=== PATIENT | male | born 1990 | race Caucasian/White ===

== ENCOUNTER 2017-09-12 13:14 | Inpatient (IN) | payer SELFPAY ==
[~2017-09-12] VITALS: Ht 177.8 cm; Wt 92.4 kg
[~2017-09-12 13:14] MED LIST: DEXAMETHASONE SOD PHOS 4 MG/ML VIAL IV ONE; LACTATED RINGER'S 1000 ML INJ 1,000 ML IV ONE; LIDOCAINE HCL 1% PF 5 ML SYRINGE OTHER ONE; ONDANSETRON HCL 4 MG/2 ML VIAL IV ONE; PROPOFOL 200 MG/20 ML AMP IV ONE; ROCURONIUM INJ 50 MG/5 ML SYRINGE IV PUSH ONE; SUCCINYLCHOLINE CHLORIDE 100 MG/5 ML SYRINGE IV PUSH ONE
[2017-09-12 13:16] VITALS: BP 136/88; PULSE 120; RESP 22; TEMP 97.9; O2SAT 95
[2017-09-12] MEDS ORDERED: LEVO5TAB8 PO (14:15)
[2017-09-12 14:28] LABS: AUTOMATED NEUTROPHIL # 13.1 TH/MM3 (1.8-7.7); BASOPHIL % 0.2 % (0.0-2.0); EOSINOPHIL # 0.1 TH/MM3 (0-0.4); EOSINOPHIL % 0.9 % (0.0-4.0); HEMATOCRIT 47.1 % (39.0-51.0); HEMOGLOBIN 15.8 GM/DL (13.0-17.0); LYMPH % 7.2 % (9.0-44.0); LYMPHOCYTE # 1.1 TH/MM3 (1.0-4.8); MEAN CELL VOLUME 86.5 FL (80.0-100.0); MEAN CORPUSCULAR HGB CONC 33.5 % (32.0-36.0); MEAN PLATELET VOLUME 6.8 FL (7.0-11.0); MONO % 3.5 % (0.0-8.0); MONOCYTE # 0.5 TH/MM3 (0-0.9); NEUT % 88.2 % (16.0-70.0); PLATELET COUNT 351 TH/MM3 (150-450); RED BLOOD COUNT 5.44 MIL/MM3 (4.50-5.90); RED CELL DISTRIBUTION WIDTH 13.1 % (11.6-17.2); WHITE BLOOD COUNT 14.8 TH/MM3 (4.0-11.0)
[2017-09-12 14:44] LABS: ALBUMIN 4.7 GM/DL (3.4-5.0); ALT (GPT) 55 U/L (12-78); AST (GOT) 17 U/L (15-37); BICARBONATE 30.4 MEQ/L (21.0-32.0); BLOOD UREA NITROGEN 11 MG/DL (7-18); CALCIUM 9.6 MG/DL (8.5-10.1); CHLORIDE 104 MEQ/L (98-107); CREATININE 1.09 MG/DL (0.60-1.30); GLOMERULAR FILTRATION RATE 82 ML/MIN (>89); GLUCOSE,RANDOM 124 MG/DL (74-106); LIPASE 74 U/L (73-393); SODIUM (NA) 140 MEQ/L (136-145)
[2017-09-12] MEDS ORDERED: SODIUM CHLORIDE 0.9% FLUSH 10 ML FLUSH IV FLUSH PRN ×3 (14:45→19:00)
[2017-09-12 14:46] LABS: ALKALINE PHOSPHATASE 83 U/L (45-117); TOTAL PROTEIN 8.5 GM/DL (6.4-8.2)
--- NOTE | 2017-09-12 14:55 | PD ---
HPI Chief Complaint: Abdominal Pain Time Seen by Provider: 14:22 Travel History International Travel<30 days: No Contact w/Intl Traveler<30days: No Traveled to known affect area: No History of Present Illness HPI 27-year-old male complains of abdominal pain. Started about 8 hours prior. It is constantly becoming worse. Location is periumbilical. Associated symptoms include vomiting. Oral intake has been increased in association with the holiday season however nothing markedly abnormal according to patient. Bowel movements have been normal. Pain is worse with palpation. Severity moderate. PFSH Past Medical History Medical History: Denies Significant Hx Past Surgical History Surgical History: No Previous Surgery Social History Alcohol Use: Yes (occasional) Tobacco Use: Yes (occasional cigarettes) Substance Use: No Allergies-Medications (Allergen,Severity, Reaction): Coded Allergies: No Known Allergies (Unverified , 09/12/17) Reported Meds & Prescriptions Reported Meds & Active Scripts Active Reported Xyzal (Levocetirizine Dihydrochloride) 5 Mg Tablet 1 Tab PO DAILY Review of Systems Except as stated in HPI: all other systems reviewed are Neg General / Constitutional: No: Fever Physical Exam Narrative GENERAL: 27-year-old male well-nourished well-developed SKIN: Focused skin assessment warm/dry. HEAD: Atraumatic. Normocephalic. EYES: Pupils equal and round. No scleral icterus. No injection or drainage. ENT: No nasal bleeding or discharge. Mucous membranes pink and moist. NECK: Trachea midline. No JVD. CARDIOVASCULAR: Regular rate and rhythm. No murmur appreciated. RESPIRATORY: No accessory muscle use. Clear to auscultation. Breath sounds equal bilaterally. GASTROINTESTINAL: Soft. Minimal tenderness in the periumbilical and right abdomen. MUSCULOSKELETAL: No obvious deformities. No clubbing. No cyanosis. No edema. NEUROLOGICAL: Awake and alert. No obvious cranial nerve deficits. Motor grossly within normal limits. Normal speech. PSYCHIATRIC: Appropriate mood and affect; insight and judgment normal. Data Data Last Documented VS Vital Signs Date Time Temp Pulse Resp B/P (MAP) Pulse Ox O2 Delivery O2 Flow Rate FiO2 09/12/17 16:00 98 12 114/74 (87) 98 Room Air 09/12/17 13:16 97.9 Vital signs reviewed; tachycardia noted Orders Orders Complete Blood Count With Diff (09/12/17 13:41) Comprehensive Metabolic Panel (09/12/17 13:41) Lipase (09/12/17 13:41) Ct Abd/Pel W Iv Contrast(Rout) (09/12/17 14:32) Iv Access Insert/Monitor (09/12/17 14:32) Ecg Monitoring (09/12/17 14:32) Oximetry (09/12/17 14:32) Sodium Chloride 0.9% Flush (Ns Flush) (09/12/17 14:45) Iohexol 350 Inj (Omnipaque 350 Inj) (09/12/17 15:49) Piperacil-Tazo 4.5 Gm Premix (Zosyn 4.5 (09/12/17 16:30) Admit Order (Ed Use Only) (09/12/17 16:23) Labs Laboratory Tests Test 09/12/17 14:10 White Blood Count 14.8 TH/MM3 Red Blood Count 5.44 MIL/MM3 Hemoglobin 15.8 GM/DL Hematocrit 47.1 % Mean Corpuscular Volume 86.5 FL Mean Corpuscular Hemoglobin 29.0 PG Mean Corpuscular Hemoglobin Concent 33.5 % Red Cell Distribution Width 13.1 % Platelet Count 351 TH/MM3 Mean Platelet Volume 6.8 FL Neutrophils (%) (Auto) 88.2 % Lymphocytes (%) (Auto) 7.2 % Monocytes (%) (Auto) 3.5 % Eosinophils (%) (Auto) 0.9 % Basophils (%) (Auto) 0.2 % Neutrophils # (Auto) 13.1 TH/MM3 Lymphocytes # (Auto) 1.1 TH/MM3 Monocytes # (Auto) 0.5 TH/MM3 Eosinophils # (Auto) 0.1 TH/MM3 Basophils # (Auto) 0.0 TH/MM3 CBC Comment DIFF FINAL Differential Comment Blood Urea Nitrogen 11 MG/DL Creatinine 1.09 MG/DL Random Glucose 124 MG/DL Total Protein 8.5 GM/DL Albumin 4.7 GM/DL Calcium Level 9.6 MG/DL Alkaline Phosphatase 83 U/L Aspartate Amino Transf (AST/SGOT) 17 U/L Alanine Aminotransferase (ALT/SGPT) 55 U/L Total Bilirubin 1.0 MG/DL Sodium Level 140 MEQ/L Potassium Level 4.5 MEQ/L Chloride Level 104 MEQ/L Carbon Dioxide Level 30.4 MEQ/L Anion Gap 6 MEQ/L Estimat Glomerular Filtration Rate 82 ML/MIN Lipase 74 U/L MDM Medical Decision Making Medical Screen Exam Complete: Yes Emergency Medical Condition: Yes Differential Diagnosis Gastritis, pancreatitis, appendicitis, acute cholecystitis, ascending cholangitis, AAA, perforated viscous, mesenteric ischemia, hepatitis, cystitis, hydronephrosis/hydroureter/nephroureter calculus, mesenteric adenitis, biliary colic Narrative Course CBC & BMP Diagram 09/12/17 14:10 Total Protein 8.5 H, Albumin 4.7, Calcium Level 9.6, Alkaline Phosphatase 83, Aspartate Amino Transf (AST/SGOT) 17, Alanine Aminotransferase (ALT/SGPT) 55, Total Bilirubin 1.0 Lipase 74 Last 24 hours Impressions Abdomen/Pelvis CT 09/12/17 1432 Signed Impressions: Service Date/Time: Tuesday, September 12, 2017 15:37 - CONCLUSION: Findings consistent with perforated appendicitis. Johnathon Esparza MD Patient received Zosyn. Case discussed with Dr. Nunez. He remains hemodynamically normal and prefers no opioid pain medication. Diagnosis Primary Impression: Acute perforated appendicitis Admitting Information Admitting Physician Requests: Admit Xavier Mcgill MD Sep 12, 2017 14:55
[2017-09-12] MEDS ORDERED: IOHEXOL 350 MG/ML 10 ML VIAL (for RAD DIAG) IVCONTRAST ONE (15:49)
[2017-09-12 16:00] VITALS: BP 114/74; PULSE 98; RESP 12; O2SAT 98
--- NOTE | 2017-09-12 16:15 | RADRPT ---
EXAM DATE/TIME: 09/12/2017 15:37 [facility] COMPARISON: No previous studies available for comparison. INDICATIONS : Right upper region pain for one day. Nausea, vomiting.Appendicitis. IV CONTRAST: 96 cc Omnipaque 350 (iohexol) IV ORAL CONTRAST: No oral contrast ingested. RADIATION DOSE: 11.34 CTDIvol (mGy) MEDICAL HISTORY : None SURGICAL HISTORY : None. ENCOUNTER: Initial ACUITY: 1 day PAIN SCALE: 7/10 LOCATION: Right upper quadrant TECHNIQUE: Volumetric scanning of the abdomen and pelvis was performed. Using automated exposure control and ad justment of the mA and/or kV according to patient size, radiation dose was kept as low as reasonably achievable to obtain optimal diagnostic quality images. DICOM format image data is available electro nically for review and comparison. FINDINGS: LOWER LUNGS: The visualized lower lungs are clear. LIVER: Homogeneous density without lesion. There is no dilation of the biliary tree. No calcified gallston es. SPLEEN: Normal size without lesion. PANCREAS: Within normal limits. KIDNEYS: Normal in size and shape. There is no mass, stone or hydronephrosis. ADRENAL GLANDS: Within normal limits. VASCULAR: There is no aortic aneurysm. BOWEL/MESENTERY: A small hiatal hernia is present. In the right lower quadrant, the appendix is dilated and fluid-fill ed with increased mucosal enhancement. There is a small volume of periappendiceal fluid and a small v olume of dependent pelvic fluid. There is no evidence of pneumoperitoneum. There is no evidence of ob struction. ABDOMINAL WALL: Tiny fat containing umbilical hernia. RETROPERITONEUM: There is no lymphadenopathy. BLADDER: No wall thickening or mass. REPRODUCTIVE: Within normal limits. INGUINAL: There is no lymphadenopathy or hernia. MUSCULOSKELETAL: Within normal limits for patient age. CONCLUSION: Findings consistent with perforated appendicitis. Johnathon Esparza MD on September 12, 2017 at 16:07 Board Certified Radiologist. This report was verified electronically.
[2017-09-12] MEDS ORDERED: PIPERACIL-TAZO 4.5 GM PREMIX 100 ML IV ONE (16:30)
[2017-09-12] MEDS ORDERED: ONDANSETRON HCL 4 MG/2 ML VIAL IV PUSH PRN (17:00)
[2017-09-12 17:15] VITALS: BP 134/68; PULSE 98; RESP 14; O2SAT 97
[2017-09-12] MEDS ORDERED: MORPHINE SULFATE 2 MG/ML INJ IV PRN (17:15)
[2017-09-12] MEDS ORDERED: BUPIVACAINE/EPINEPHRINE 0.25% PF 30 ML VIAL ONE (17:31)
--- NOTE | 2017-09-12 17:40 | HHI.HP ---
HPI Service General Surgery Primary Care Physician No Primary Care Physician Admission Diagnosis Acute Perforated Appendicitis Chief Complaint: abdominal pain History of Present Illness 27 yo M awoke with severe abdominal pain in right lower abdomen this morning which persisted. He had associated nausea, vomiting, and chills. The pain is also present but less severe in left abdomen and suprapubic area. He presented to the ED and was noted to have tachycardia and leukocytosis as well as RLQ tenderness. CT a/p was ordered revealing appendicitis with associated free fluid indicating perforation. No free air present. He has had no previous surgeries. Review of Systems Constitutional: COMPLAINS OF: Chills, DENIES: Fever Eyes: DENIES: Eye inflammation, Eye pain Ears, nose, mouth, throat: DENIES: Oral lesions, Throat pain Respiratory: DENIES: Cough, Shortness of breath Cardiovascular: DENIES: Chest pain, Palpitations Gastrointestinal: COMPLAINS OF: Abdominal pain, Nausea, Vomiting Musculoskeletal: DENIES: Joint Swelling, Back pain Integumentary: DENIES: Pruritus, Rash Neurologic: DENIES: Paresthesias, Seizures Past Family Social History Past Medical History Seasonal allergies Past Surgical History None Reported Medications Reported Meds & Active Scripts Active Reported Xyzal (Levocetirizine Dihydrochloride) 5 Mg Tablet 1 Tab PO DAILY Allergies: Coded Allergies: No Known Allergies (Unverified , 09/12/17) Active Ordered Medications Current Medications Medications (Trade) Dose Ordered Sig/Toby Route Start Time Stop Time Status Last Admin (NS Flush) 2 ml UNSCH PRN IV FLUSH 09/12/17 14:45 (NS Flush) 2 ml UNSCH PRN IV FLUSH 09/12/17 17:00 (NS Flush) 2 ml BID IV FLUSH 09/12/17 21:00 (Zofran Inj) 4 mg Q6H PRN IV PUSH 09/12/17 17:00 09/12/17 17:17 (Morphine Inj) 4 mg Q3H PRN IV 09/12/17 17:15 Family History Noncontributory Social History Occ ETOH. No tobacco or drug use. Physical Exam Vital Signs Vital Signs Date Time Temp Pulse Resp B/P (MAP) Pulse Ox O2 Delivery O2 Flow Rate FiO2 09/12/17 17:34 09/12/17 17:15 98 14 134/68 (90) 97 Room Air 09/12/17 16:00 98 12 114/74 (87) 98 Room Air 09/12/17 13:16 97.9 120 22 136/88 (104) 95 Room Air Physical Exam GENERAL: Awake and alert. No acute distress. Cooperative. Overweight. HEAD: Normocephalic. Atraumatic. EYES: Pupils equal round and reactive to light bilaterally. No scleral icterus. ENT: Moist oral mucosa. NECK: Trachea midline. CHEST: Lungs clear to auscultation bilaterally with no wheezing or rhonchi. No respiratory distress. CARDIOVASCULAR: Regular rate and rhythm. ABDOMEN: Mildly distended. Rebound tenderness just inferior and to the right of the umbilicus. Left abdomen and right upper abdomen are mildly tender to palpation. EXTREMITIES: No cyanosis or edema. SKIN: Warm, dry, nonjaundiced. Laboratory Laboratory Tests Test 09/12/17 14:10 White Blood Count 14.8 Red Blood Count 5.44 Hemoglobin 15.8 Hematocrit 47.1 Mean Corpuscular Volume 86.5 Mean Corpuscular Hemoglobin 29.0 Mean Corpuscular Hemoglobin Concent 33.5 Red Cell Distribution Width 13.1 Platelet Count 351 Mean Platelet Volume 6.8 Neutrophils (%) (Auto) 88.2 Lymphocytes (%) (Auto) 7.2 Monocytes (%) (Auto) 3.5 Eosinophils (%) (Auto) 0.9 Basophils (%) (Auto) 0.2 Neutrophils # (Auto) 13.1 Lymphocytes # (Auto) 1.1 Monocytes # (Auto) 0.5 Eosinophils # (Auto) 0.1 Basophils # (Auto) 0.0 CBC Comment DIFF FINAL Differential Comment Blood Urea Nitrogen 11 Creatinine 1.09 Random Glucose 124 Total Protein 8.5 Albumin 4.7 Calcium Level 9.6 Alkaline Phosphatase 83 Aspartate Amino Transf (AST/SGOT) 17 Alanine Aminotransferase (ALT/SGPT) 55 Total Bilirubin 1.0 Sodium Level 140 Potassium Level 4.5 Chloride Level 104 Carbon Dioxide Level 30.4 Anion Gap 6 Estimat Glomerular Filtration Rate 82 Lipase 74 Result Diagram: 09/12/17 1410 09/12/17 1410 Imaging Last Impressions Abdomen/Pelvis CT 09/12/17 1432 Signed Impressions: Service Date/Time: Tuesday, September 12, 2017 15:37 - CONCLUSION: Findings consistent with perforated appendicitis. Johnathon Esparza MD Caprinrodriguez VTE Risk Assessment Caprini VTE Risk Assessment: No/Low Risk (score <= 1) Caprini Risk Assessment Model Point Value = 1 Point Value = 2 Point Value = 3 Point Value = 5 Age 41-60 Minor surgery BMI > 25 kg/m2 Swollen legs Varicose veins or History of unexplained or recurrent spontaneous Oral contraceptives or hormone replacement Sepsis (< 1 month) Serious lung disease, including pneumonia (< 1 month) Abnormal pulmonary function Acute myocardial infarction Congestive heart failure (< 1 month) History of inflammatory bowel disease Medical patient at bed rest Age 61-74 Arthroscopic surgery Major open surgery (> 45 min) Laparoscopic surgery (> 45 min) Malignancy Confined to bed (> 72 hours) Immobilizing plaster cast Central venous access Age >= 75 History of VTE Family history of VTE Factor V Leiden Prothrombin [id number] Lupus anticoagulant Anticardiolipin antibodies Elevated serum homocysteine Heparin-induced thrombocytopenia Other congenital or acquired thrombophilia Stroke (< 1 month) Elective arthroplasty Hip, pelvis, or leg fracture Acute spinal cord injury (< 1 month) Prophylaxis Regimen Total Risk Factor Score Risk Level Prophylaxis Regimen 0-1 Low Early ambulation 2 Moderate Order ONE of the following: *Sequential Compression Device (SCD) *Heparin 5000 units SQ BID 3-4 Higher Order ONE of the following medications: *Heparin 5000 units SQ TID *Enoxaparin/Lovenox 40 mg SQ daily (WT < 150 kg, CrCl > 30 mL/min) *Enoxaparin/Lovenox 30 mg SQ daily (WT < 150 kg, CrCl > 10-29 mL/min) *Enoxaparin/Lovenox 30 mg SQ BID (WT < 150 kg, CrCl > 30 mL/min) AND/OR *Sequential Compression Device (SCD) 5 or more Highest Order ONE of the following medications: *Heparin 5000 units SQ TID (Preferred with Epidurals) *Enoxaparin/Lovenox 40 mg SQ daily (WT < 150 kg, CrCl > 30 mL/min) *Enoxaparin/Lovenox 30 mg SQ daily (WT < 150 kg, CrCl > 10-29 mL/min) *Enoxaparin/Lovenox 30 mg SQ BID (WT < 150 kg, CrCl > 30 mL/min) AND *Sequential Compression Device (SCD) Assessment and Plan Assessment and Plan This 27-year-old male with evidence of appendicitis likely perforated. Recommend to proceed to the operating room for laparoscopic possible open appendectomy. I discussed the procedure in detail as well as the risks and he desires to proceed. He's been administered Zosyn in the emergency department. Enrique,Dariel RAZO Sep 12, 2017 17:40
[2017-09-12] MEDS ORDERED: HYDROmorphone HCL PF 2 MG/ML VIAL ONE (17:41)
[2017-09-12] MEDS ORDERED: ACETAMINOPHEN 1000 MG/100 ML 100 ML IV ONE (17:41)
[2017-09-12] MEDS: LACTATED RINGER'S 1000 ML INJ 1,000 ML IV SCH (19:00)
[2017-09-12] MEDS ORDERED: NALOXONE HCL 0.4 MG/ML AMP IV PUSH PRN (19:00)
[2017-09-12] MEDS ORDERED: Post-op Orders (for Pharmacy) XX ONE (19:00)
--- NOTE | 2017-09-12 19:03 | PD.OP ---
cc: Dariel Nunez MD Operative Report Date of Surgery: Sep 12, 2017 Preoperative Diagnosis: (1) Acute perforated appendicitis Postoperative Diagnosis: (1) Acute perforated appendicitis Procedure: Laparoscopic appendectomy with washout and drain placement Anesthesia: ADILENEA Surgeon: Dariel Nunez Vessel Operator(s): Micha WESTON Operation and Findings: EBL: 5 cc Complications: None apparent Operative findings: The appendix was dilated and inflamed. There was evidence of generalized peritonitis with significant changes on the serosa of the small large bowel. The patient had an ileus. There was pus in the right lower quadrant and the pelvis consistent with perforation. Procedure in detail: The patient was taken to the operating room placed in the supine position with left arm tucked. General endotracheal anesthesia was induced and the abdomen was prepped and draped in usual sterile fashion. Surgical timeout was performed to verify correct patient procedure and site. Perioperative antibiotics were administered as necessary. Local anesthetic was injected in the skin and subcutaneous tissue at the left lower abdomen and a 5 mm incision made. Using the 5 mm Optiview trocar with laparoscope the abdomen was directly entered. Was then insufflated to 15 mmHg with CO2 gas which the patient tolerated well. The patient was then placed in Trendelenburg position and turned slightly to the left. A 12 mm port was placed under laparoscopic visualization in the suprapubic area and a 5 mm port infraumbilical area. Attention was turned to the right lower quadrant and the appendix was dilated indurated and inflamed. There was patchy erythema on the abdominal wall and a small large bowel consistent with generalized peritonitis. There was pus noted in the right lower quadrant near the appendix.. The mesoappendix was taken down with the Harmonic scalpel. The base was healthy appearing. Two #1 PDS Endoloops were placed at the base the appendix and the appendix transected with Harmonic scalpel. It was then removed using an Endo Catch bag. The appendiceal stump was intact with no leakage. The right lower quadrant was copiously irrigated. The pelvis had a large amount of pus in it and this was suctioned and copiously irrigated. The remainder of the abdomen was evaluated for purulent fluid and there was not any. I opted to place a drain in the right lower quadrant and pelvis. A 19 Serbian round channel drain was placed through the left 5 mm trocar site and secured with 3-0 nylon. The abdomen was allowed to desufflate. The fascia at the 12 mm port site was closed with 0 Vicryl suture. Skin closed with subcuticular Monocryl as well as Dermabond. The patient tolerated the procedure well was extubated and taken to PACU in stable condition. Dariel Nunez MD Sep 12, 2017 19:03
[2017-09-12] MEDS ORDERED: DO NOT ADM ANY ANTICOAGULANT DRUGS PRN (19:45)
[2017-09-12] MEDS: LEVOFLOXACIN 750 MG PREMIX INJ 150 ML IV SCH (19:58)
[2017-09-12 21:00] VITALS: BP 128/73; PULSE 84; RESP 20; TEMP 95.8; O2SAT 98
[2017-09-12] MEDS ORDERED: SODIUM CHLORIDE 0.9% FLUSH 10 ML FLUSH IV FLUSH SCH (21:00)
[2017-09-12] MEDS: SODIUM CHLORIDE 0.9% FLUSH 10 ML FLUSH IV FLUSH SCH (21:00)
[2017-09-12] MEDS: diphenhydrAMINE HCL 50 MG/ML VIAL IV PUSH PRN (21:27)
[2017-09-12] MEDS: metroNIDAZOLE 500 MG INJ 100 ML IV SCH (21:28)
[2017-09-13] VITALS (7 sets, daily range): BP systolic 114–129; BP diastolic 58–71; PULSE 75–92; RESP 18–20; TEMP 96.2–96.9; O2SAT 94–96
[2017-09-13] MEDS: oxyCODONE/ACETAMINOPHEN 5 MG/325 MG TAB PO PRN ×2 (01:53→23:36)
[2017-09-13] MEDS: metroNIDAZOLE 500 MG INJ 100 ML IV SCH ×4 (02:21→20:11)
[2017-09-13] MEDS: LACTATED RINGER'S 1000 ML INJ 1,000 ML IV SCH ×4 (02:21→18:57)
[2017-09-13 07:07] LABS: AUTOMATED NEUTROPHIL # 12.8 TH/MM3 (1.8-7.7); BASOPHIL % 0.1 % (0.0-2.0); HEMATOCRIT 38.2 % (39.0-51.0); HEMOGLOBIN 13.3 GM/DL (13.0-17.0); LYMPH % 5.5 % (9.0-44.0); LYMPHOCYTE # 0.8 TH/MM3 (1.0-4.8); MEAN CELL VOLUME 86.5 FL (80.0-100.0); MEAN CORPUSCULAR HEMOGLOBIN 30.1 PG (27.0-34.0); MEAN CORPUSCULAR HGB CONC 34.8 % (32.0-36.0); MEAN PLATELET VOLUME 7.3 FL (7.0-11.0); MONO % 3.3 % (0.0-8.0); MONOCYTE # 0.5 TH/MM3 (0-0.9); NEUT % 91.1 % (16.0-70.0); PLATELET COUNT 283 TH/MM3 (150-450); RED BLOOD COUNT 4.42 MIL/MM3 (4.50-5.90); RED CELL DISTRIBUTION WIDTH 13.1 % (11.6-17.2); WHITE BLOOD COUNT 14.1 TH/MM3 (4.0-11.0)
[2017-09-13] MEDS: oxyCODONE/ACETAMINOPHEN 10 MG/325 MG TAB PO PRN ×2 (07:50→13:53)
[2017-09-13] MEDS: SODIUM CHLORIDE 0.9% FLUSH 10 ML FLUSH IV FLUSH SCH ×2 (09:00→20:11)
--- NOTE | 2017-09-13 12:12 | HHI.PR ---
Subjective Subjective Notes pt comfortable no cp no sob pos flatus Objective Vitals/I&O Vital Signs Date Time Temp Pulse Resp B/P (MAP) Pulse Ox O2 Delivery O2 Flow Rate FiO2 09/13/17 08:50 18 09/13/17 08:00 96.9 79 129/67 (87) 95 09/12/17 20:15 Room Air 09/12/17 20:00 2 Labs Laboratory Tests Test 09/12/17 14:10 09/13/17 04:38 White Blood Count 14.8 14.1 Red Blood Count 5.44 4.42 Hemoglobin 15.8 13.3 Hematocrit 47.1 38.2 Mean Corpuscular Volume 86.5 86.5 Mean Corpuscular Hemoglobin 29.0 30.1 Mean Corpuscular Hemoglobin Concent 33.5 34.8 Red Cell Distribution Width 13.1 13.1 Platelet Count 351 283 Mean Platelet Volume 6.8 7.3 Neutrophils (%) (Auto) 88.2 91.1 Lymphocytes (%) (Auto) 7.2 5.5 Monocytes (%) (Auto) 3.5 3.3 Eosinophils (%) (Auto) 0.9 0.0 Basophils (%) (Auto) 0.2 0.1 Neutrophils # (Auto) 13.1 12.8 Lymphocytes # (Auto) 1.1 0.8 Monocytes # (Auto) 0.5 0.5 Eosinophils # (Auto) 0.1 0.0 Basophils # (Auto) 0.0 0.0 CBC Comment DIFF FINAL DIFF FINAL Differential Comment Blood Urea Nitrogen 11 Creatinine 1.09 Random Glucose 124 Total Protein 8.5 Albumin 4.7 Calcium Level 9.6 Alkaline Phosphatase 83 Aspartate Amino Transf (AST/SGOT) 17 Alanine Aminotransferase (ALT/SGPT) 55 Total Bilirubin 1.0 Sodium Level 140 Potassium Level 4.5 Chloride Level 104 Carbon Dioxide Level 30.4 Anion Gap 6 Estimat Glomerular Filtration Rate 82 Lipase 74 Radiology Last Impressions Abdomen/Pelvis CT 09/12/17 1432 Signed Impressions: Service Date/Time: Tuesday, September 12, 2017 15:37 - CONCLUSION: Findings consistent with perforated appendicitis. Johnathon Esparza MD Abdomen: Post-op tenderness Extremities: Perfused Narrative Exam sola cloudy Wound Wound : Wound Location: Abdomen Appearance: Clean & Dry A/P Assessment and Plan POD #1 S/p lap appy doing well cont iv abx full liquid diet Chito Heck MD Sep 13, 2017 12:12
[2017-09-13] MEDS: LEVOFLOXACIN 750 MG PREMIX INJ 150 ML IV SCH (20:11)
[2017-09-14] VITALS: BP 126/70; PULSE 80; RESP 18; TEMP 96.6; O2SAT 95
[2017-09-14] MEDS: LACTATED RINGER'S 1000 ML INJ 1,000 ML IV SCH ×4 (04:18→20:55)
[2017-09-14] MEDS: metroNIDAZOLE 500 MG INJ 100 ML IV SCH ×4 (04:18→20:56)
[2017-09-14] MEDS: diphenhydrAMINE HCL 50 MG/ML VIAL IV PUSH PRN (04:21)
[2017-09-14] MEDS: SODIUM CHLORIDE 0.9% FLUSH 10 ML FLUSH IV FLUSH SCH ×2 (07:24→20:56)
[2017-09-14 08:00] VITALS: BP 121/68; PULSE 72; RESP 17; TEMP 97.1; O2SAT 95
[2017-09-14] MEDS: oxyCODONE/ACETAMINOPHEN 5 MG/325 MG TAB PO PRN (11:04)
[2017-09-14 12:00] VITALS: BP 118/64; PULSE 68; RESP 17; TEMP 97; O2SAT 96
[2017-09-14 16:00] VITALS: BP 125/74; PULSE 73; RESP 17; TEMP 95.9; O2SAT 97
[2017-09-14 20:00] VITALS: BP 127/72; PULSE 95; RESP 18; TEMP 96.6; O2SAT 95
--- NOTE | 2017-09-14 20:26 | HHI.PR ---
Subjective Subjective Notes pt comfortable no cp no sob pos flatus Objective Vitals/I&O Vital Signs Date Time Temp Pulse Resp B/P (MAP) Pulse Ox O2 Delivery O2 Flow Rate FiO2 09/14/17 16:00 95.9 73 17 125/74 (91) 97 09/12/17 20:15 Room Air 09/12/17 20:00 2 Labs Last Impressions Abdomen/Pelvis CT 09/12/17 1432 Signed Impressions: Service Date/Time: Tuesday, September 12, 2017 15:37 - CONCLUSION: Findings consistent with perforated appendicitis. Johnathon Epsarza MD Radiology Last Impressions Abdomen/Pelvis CT 09/12/172 Signed Impressions: Service Date/Time: Tuesday, September 12, 2017 15:37 - CONCLUSION: Findings consistent with perforated appendicitis. Johnathon Esparza MD Abdomen: Post-op tenderness Extremities: No edema Narrative Exam sola cloudy Wound Wound : Wound Location: Abdomen Appearance: Clean & Dry A/P Assessment and Plan POD #2 S/P lap appy doing well cont iv abx reg diet Chito Heck MD Sep 14, 2017 20:26
[2017-09-14] MEDS: LEVOFLOXACIN 750 MG PREMIX INJ 150 ML IV SCH (20:56)
[2017-09-14] MEDS: oxyCODONE/ACETAMINOPHEN 10 MG/325 MG TAB PO PRN (20:59)
[2017-09-15 00:33] VITALS: BP 127/78; PULSE 100; RESP 18; TEMP 97.5; O2SAT 96
[2017-09-15] MEDS: metroNIDAZOLE 500 MG INJ 100 ML IV SCH ×2 (03:05→08:54)
[2017-09-15 08:00] VITALS: BP 114/66; PULSE 71; RESP 18; TEMP 96.5; O2SAT 96
[2017-09-15] MEDS ORDERED: PERC5TAB12 PO (08:26)
[2017-09-15] MEDS ORDERED: LEVO750T3 PO (08:29)
[2017-09-15] MEDS ORDERED: METR-1 PO (08:29)
[2017-09-15] MEDS: BISACODYL 10 MG SUPP RECTAL ONE ×2 (08:30→12:04)
[2017-09-15] MEDS ORDERED: MAGNESIUM HYDROXIDE SUSP 30 ML CUP PO ONE (08:30)
[2017-09-15] MEDS: SODIUM CHLORIDE 0.9% FLUSH 10 ML FLUSH IV FLUSH SCH (08:41)
[2017-09-15] MEDS: LACTATED RINGER'S 1000 ML INJ 1,000 ML IV SCH (08:56)
[2017-09-15] MEDS: oxyCODONE/ACETAMINOPHEN 5 MG/325 MG TAB PO PRN (08:58)
[2017-09-15 12:00] VITALS: BP 125/70; PULSE 78; RESP 18; TEMP 96.9; O2SAT 97
[2017-09-15] MEDS: oxyCODONE/ACETAMINOPHEN 10 MG/325 MG TAB PO PRN (15:20)
== END 2017-09-15 15:23 | disposition home or self-care (01) | DRG 339 ==
LOC: NEPC 13:14 → NEDA 16:25 → N07B 18:20 → N07A 20:59
PROVIDERS: ADMIT Surgery; ATTEND Surgery
PROC: 0DTJ4ZZ Resection of Appendix, Percutaneous Endoscopic Approach (ICD-10-PCS; principal; 2017-09-12 17:55)
DX: K35.2 Acute appendicitis with generalized peritonitis (principal); K56.7 Ileus, unspecified; J30.2 Other seasonal allergic rhinitis; Z72.0 Tobacco use
CPT/HCPCS: 74177; 80053; 83690; 85025; 88304; 94150; J0131; J0330; J1100; J1170; J1200; J1956; J2405; J2543; J3010; J7120; Q9967